=== PATIENT | male | born 1950 | race Caucasian/White ===

== ENCOUNTER → 2017-04-08 | Day surgery (SDC) | payer BC ==
[~2017-04-08] VITALS: Ht 185.4 cm; Wt 104.5 kg
[~2017-04-08] MED LIST: ADVIL200 MG PO; AMLOD-VALSA-HC1 EAC1 PO; ASPIRIN325 MG PO; PERCOCET 5-3251 EACH PO; TYLENOL EXTRA500 MG PO; ULTRAM50 MG PO
--- NOTE | ~2017-04-08 | OR ---
PATIENT'S NAME: ZACHARY KEMP [facility] [place] AGE: 66 Y [address] ROOM: [place] [address] LOCATION: [facility] [place] DATE: 04/08/2017 OR/Procedure Report DISCHARGE DATE: FAMILY PHYSICIAN: KEIRA TURK MD ATTENDING PHYSICIAN: Beverly Bell SURGEON: Linden Soni MD AUTO FLEET MANAGER: DATE OF PROCEDURE: 04/08/2017 PROCEDURE: Left L3-4 transforaminal epidural steroid injection. INDICATION: The patient has herniated disc with left lower extremity radiculopathy, canal stenosis, foraminal stenosis, lumbar degenerative disease. Risks, benefits, and alternatives explained to the patient and wished to proceed. DESCRIPTION OF PROCEDURE: He was taken to procedure room and placed in the prone position. Fluoroscopy was used to identify the L3-4 disc interspace. The back was prepped with Betadine x3 and sterile drape applied over top. 3 mL of 1% lidocaine was used for local anesthetic. Next, a 22-gauge 3.5 inch spinal needle was advanced using fluoroscopic guidance. Once it was felt to be in position in both AP and lateral views, 1 mL of contrast was injected showing good epidural spread, no intrathecal spread, no intravascular uptake. Next, a mixture of 2 mL of 2% lidocaine, 10 mg of preservative free Decadron were injected without complication. Stylette placed, needle removed, hemostasis achieved. COMPLICATIONS: None. BLOOD LOSS: None. LINDEN SONI MD JJP/modl /[id number] d: 04/08/172235 t: 04/11/17 1423, OPERATIVE SUMMARY
== END | disposition disaster alternative care site (69) ==
LOC: GPOC 04-04 16:00 → GSDC 13:46
PROC: 3E0R3BZ Introduction of Anesthetic Agent into Spinal Canal, Percutaneous Approach (ICD-10-PCS; principal; 2017-04-08)
PROC: 3E0R33Z Introduction of Anti-inflammatory into Spinal Canal, Percutaneous Approach (ICD-10-PCS; 2017-04-08)
DX: M51.16 Intervertebral disc disorders with radiculopathy, lumbar region (principal); M47.26 Other spondylosis with radiculopathy, lumbar region; M48.06 Spinal stenosis, lumbar region; I10 Essential (primary) hypertension; Z87.891 Personal history of nicotine dependence